=== PATIENT | male | born 1985 | race Caucasian/White ===

== ENCOUNTER → 2020-11-13 | Outpatient (CLI) | payer SELFPAY ==
[2020-11-13 13:14] LABS: Creatine Kinase MB 2.3 ng/mL (0.0-2.4); Troponin I <0.012 ng/mL (0.000-0.034)
[2020-11-13 20:58] LABS: Basophils # (A) 0.03 X 10*3/uL (0.00-0.10); Basophils % (A) 0.5 %; Eosinophils # (A) 0.08 X 10*3/uL (0.04-0.35); Eosinophils % (A) 1.2 %; HCT 48.7 % (39.6-50.0); HGB 16.4 g/dL (13.0-17.0); Lymphocytes # (A) 1.89 X 10*3/uL (0.90-5.00); Lymphocytes % (A) 29.2 %; MCH 30.8 pg (27.0-32.0); MCHC 33.7 g/dL (32.0-37.0); MCV 91.5 fL (80.0-97.0); Monocytes # (A) 0.35 X 10*3/uL (0.20-1.00); Monocytes % (A) 5.4 %; Neutrophils % (A) 63.4 %; Platelet Count 204 X 10*3/uL (140-440); RBC 5.32 X 10*6/uL (4.40-5.60); RDW 12.8 % (11.5-14.5); WBC 6.47 X 10*3/uL (4.50-10.00)
[2020-11-13 22:53] LABS: Hemoglobin A1C 4.9 % (4.0-6.0)
[2020-11-13 22:57] LABS: Erythrocyte Sedimentation Rate 2 mm/Hr (0-15)
[2020-11-14 02:40] LABS: HIV 2 AB Non-Reactive (Non-Reactive); HIV AB P24 Non-Reactive (Non-Reactive); HIV P24 AG Non-Reactive (Non-Reactive)
[2020-11-14 06:37] LABS: Herpes simplex I and/or II IgM 0.73 INDEX (<=0.90); Herpes simplex IgG I Ab 0.37 (< or = 0.90)
[2020-11-14 19:23] LABS: ALT 26 U/L (10-49); AST 21 U/L (14-35); African American GFR (CKD) 90.3 (60.0-200.0); Albumin/Globulin Ratio 2.17 (1.60-3.17); Alkaline Phosphatase 71 U/L (41-126); Calcium 10.4 mg/dL (8.7-10.3); Carbon Dioxide 23.8 mmol/L (21.6-31.8); Chloride 105 mmol/L (96-109); Globulin 2.3 g/dL (1.6-3.3); Glucose 82 mg/dL (70-110); Magnesium 2.2 mg/dL (1.5-2.4); Non-African American GFR(CKD) 77.9 (60.0-200.0); Potassium 4.5 mmol/L (3.5-5.5); Sodium 145 mmol/L (135-145); Total Bilirubin 1.2 mg/dL (0.3-1.2); Total Protein 7.3 g/dL (6.2-8.2)
[2020-11-14 23:56] LABS: Hepatitis B Surface AB- Quant 293.5 mIU/mL; Hepatitis B Surface Antibody Reactive (Non-Reactive); Hepatitis B Surface Antigen Non-Reactive (Non-Reactive); Hepatitis C IgG Antibody Non-Reactive (Non-Reactive)
[2020-11-15 00:16] LABS: Amylase 144 U/L (23-121); LDH 176 U/L (120-246); Lipase 94 U/L (14-60)
[2020-11-15 01:24] LABS: C Reactive Protein <0.4 mg/dL (0.0-0.8)
== END | disposition home or self-care (01) ==
LOC: LABWHC1 11:19
PROVIDERS: ATTEND Family Medicine
DX: R07.9 Chest pain, unspecified (principal); R10.9 Unspecified abdominal pain; R00.2 Palpitations; Z86.19 Personal history of other infectious and parasitic diseases
CPT/HCPCS: 36415; 80053; 82150; 82306; 82553; 82607; 82746; 83036; 83615; 83690; 83735; 84443; 84484; 85025; 85652; 86038; 86140; 86694; 86695; 86696; 86706; 86780; 86803; 87040; 87086; 87340; 87390; 87491; 87591